=== PATIENT | male | born 2005 | race African-American/Black ===

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

== ENCOUNTER 2025-10-12 09:26 | Emergency (ER) | payer OTHER | END 2025-10-12 11:20 | disposition home or self-care (01) | LOC: CSHERS 09:26 | DX: K62.89 Other specified diseases of anus and rectum (principal) | CPT/HCPCS: 99283 ==

== ENCOUNTER 2025-10-18 08:34 | Emergency (ER) | payer OTHER ==
[2025-10-18 09:20] LABS: #Basophils 0.03 10x3/uL (0.0-0.2); #Eosinophils 0.05 10x3/uL (0.0-0.5); #Monocytes 0.53 10x3/uL (0.0-1.1); #Neutrophils 4.85 10x3/uL (1.5-8.4); %Basophils 0.4 % (0.0-2.0); %Eosinophils 0.7 % (0.0-6.0); %Lymphocytes 23.5 % (18.0-47.0); %Monocytes 7.4 % (0.0-10.0); %Neutrophils 67.7 % (40.0-75.0); Hematocrit 42.6 % (38.8-50.0); Hemoglobin 14.3 g/dL (13.5-17.5); Mean Corpuscular Hemoglobin 28.2 pg (27.0-33.0); Mean Corpuscular Volume 84.0 fL (81.2-95.1); Platelet Count 241 10x3/uL (150-450); Red Blood Cell (RBC) Count 5.07 10x6/uL (4.32-5.72); White Blood Cell (WBC) Count 7.16 10x3/uL (3.5-10.5)
[2025-10-18] MEDS ORDERED: Ketorolac Tromethamine 30 MG (1 mL) VIAL ONE (09:27)
[2025-10-18 09:36] LABS: ALT (SGPT) 31 U/L (Less than 45); AST (SGOT) 30 U/L (11-34); Albumin 3.8 g/dL (3.1-4.5); Alkaline Phosphatase 56 U/L (50-130); Anion Gap 9 mmol/L (10-20); BUN (Urea Nitrogen) 13 mg/dL (8.9-20.6); Bilirubin, Total 0.3 mg/dL (0.3-1.2); Calc. Creatinine Clearance 0 mL/min (70-130); Calcium 8.8 mg/dL (7.8-10.44); Carbon Dioxide 27 mmol/L (22-29); Chloride 107 mmol/L (98-107); Globulin 2.2 g/dL (2.4-3.5); Glucose 100 mg/dL (70-105); Lipase 23 U/L (8-78); Potassium 4.1 mmol/L (3.5-5.1); Sodium 139 mmol/L (136-145)
== END 2025-10-18 10:57 | disposition home or self-care (01) ==
LOC: CSHERS 08:34
DX: R10.20 Pelvic and perineal pain unspecified side (principal)
CPT/HCPCS: 36415; 74177; 80053; 83690; 85025; 96374; J1885